=== PATIENT | female | born 2000 | race African-American/Black ===

== ENCOUNTER 2018-01-16 03:07 | Inpatient (IN) | payer OTHER ==
[~2018-01-16] VITALS: Ht 162.6 cm; Wt 55.7 kg
[2018-01-16] MEDS ORDERED: [UNRECOGNIZED DRUG - REMARK] PO (03:47)
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
[2018-01-16 04:35] LABS: BASO % 0.2 %; BASO ABS # 0.01 K/uL (0-0.2); EOS % 0.2 %; EOS ABS # 0.01 K/uL (0-0.5); HEMATOCRIT 41.5 % (37-47); HEMOGLOBIN 14.4 g/dL (12.0-16.0); IG# 0.02 K/uL (0.00-0.02); LYMPH % 13.7 %; LYMPH ABS # 0.79 K/uL (1.2-3.4); MEAN CELL VOLUME 90.2 fL (80-100); MEAN CORPUSCULAR HEMOGLOBIN 31.3 pg (25-34); MEAN CORPUSCULAR HGB CONC 34.7 g/dl (32-36); MEAN PLATELET VOLUME 9.2 fL (7.4-10.4); MONO ABS # 0.23 K/uL (0.11-0.59); NEUT % 81.6 %; NEUT ABS # 4.72 K/uL (1.4-6.5); PLATELET COUNT 225 K/uL (130-400); RED CELL DISTRIBUTION WIDTH CV 13.3 % (11.5-14.5); RED CELL DISTRIBUTION WIDTH SD 43.5 fL (36.4-46.3); WHITE BLOOD COUNT 5.78 K/uL (4.8-10.8)
[2018-01-16 04:58] LABS: CALCIUM 8.6 mg/dl (8.5-10.1); CREATININE 0.76 mg/dl (0.60-1.20); POTASSIUM 3.6 mmol/L (3.5-5.1)
[2018-01-16 05:08] LABS: TOTAL PROTEIN 7.4 gm/dl (6.4-8.2)
[2018-01-16] MEDS ORDERED: LIDOCAINE HCL 1% 20 ML VIAL ONE (05:30)
--- NOTE | 2018-01-16 06:04 | EMERGENCY ROOM VISIT NOTE ---
ED Visit Note Location: left forearm Total length: 4cm Complexity: simple Verbal consent was obtained after the risks and benefits were explained, including but not limited to bleeding, scarring, infection, pain, and bone/joint /nerve damage. At this time, the risks of the procedure are less than the risks of NOT performing the procedure. A time out was taken and the correct patient and site identified. The skin was prepped with betadine. The target area was anesthetized with 4 ml of 1% lidocaine without epinephrine. Copious irrigation was performed using NSS. The skin was re-prepped with betadine and a sterile field set. The wound was explored for foreign bodies and none found. Examination revealed no injury to deep structures such as tendons, bone, or significant blood vessels. Debridement was not performed. The wound edges were approximated using 6, 4-0 simple interrupted nylon sutures. Hemostasis and excellent approximation was achieved. Antibacterial ointment and a sterile dressing applied. Detailed wound care instructions and signs and symptoms of infection reviewed with the pt. No complications and the patient tolerated the procedure well. Current/Historical Medications Scheduled PRN [Unknown Sleep Med], 1 TAB PO HS PRN for Sleep Allergies Coded Allergies: No Known Allergies (Unverified , 01/16/18) Vital Signs Date Time Temp Pulse Resp B/P (MAP) Pulse Ox O2 Delivery O2 Flow Rate FiO2 01/16/18 03:16 37.2 97 18 101/66 96 Room Air Laboratory Results 01/16/18 04:24 Red Blood Count 4.60, Mean Corpuscular Volume 90.2, Mean Corpuscular Hemoglobin 31.3, Mean Corpuscular Hemoglobin Concent 34.7, Mean Platelet Volume 9.2, Neutrophils (%) (Auto) 81.6, Lymphocytes (%) (Auto) 13.7, Monocytes (%) (Auto) 4.0, Eosinophils (%) (Auto) 0.2, Basophils (%) (Auto) 0.2, Neutrophils # (Auto) 4.72, Lymphocytes # (Auto) 0.79, Monocytes # (Auto) 0.23, Eosinophils # (Auto) 0.01, Basophils # (Auto) 0.01 01/16/18 04:24 Test 01/16/18 00:00 01/16/18 04:24 Urine Color YELLOW Urine Appearance CLEAR (CLEAR) Urine pH 5.0 (4.5-7.5) Urine Specific [place] 1.024 (1.000-1.030) Urine Protein NEG (NEG) Urine Glucose (UA) NEG (NEG) Urine Ketones NEG (NEG) Urine Occult Blood 2+ (NEG) Urine Nitrite NEG (NEG) Urine Bilirubin NEG (NEG) Urine Urobilinogen NEG (NEG) Urine Leukocyte Esterase MODERATE (NEG) Urine WBC (Auto) 10-30 /hpf (0-5) Urine RBC (Auto) 0-4 /hpf (0-4) Urine Hyaline Casts (Auto) 1-5 /lpf (0-5) Urine Epithelial Cells (Auto) >30 /lpf (0-5) Urine Bacteria (Auto) NEG (NEG) Urine Mucus PRESENT (NONE PRSENT) Urine Opiates Screen NEG (NEG) Urine Methadone, Qualitative NEG (NEG) Urine Barbiturates NEG (NEG) Urine Phencyclidine (PCP) Level NEG (NEG) Ur Amphetamine/Methamphetamine NEG (NEG) MDMA (Ecstasy) Screen NEG (NEG) Urine Benzodiazepines Screen NEG (NEG) Urine Cocaine Metabolite NEG (NEG) Urine Marijuana (THC) NEG (NEG) White Blood Count 5.78 K/uL (4.8-10.8) Red Blood Count 4.60 M/uL (4.2-5.4) Hemoglobin 14.4 g/dL (12.0-16.0) Hematocrit 41.5 % (37-47) Mean Corpuscular Volume 90.2 fL (80-100) Mean Corpuscular Hemoglobin 31.3 pg (25-34) Mean Corpuscular Hemoglobin Concent 34.7 g/dl (32-36) Platelet Count 225 K/uL (130-400) Mean Platelet Volume 9.2 fL (7.4-10.4) Neutrophils (%) (Auto) 81.6 % Lymphocytes (%) (Auto) 13.7 % Monocytes (%) (Auto) 4.0 % Eosinophils (%) (Auto) 0.2 % Basophils (%) (Auto) 0.2 % Neutrophils # (Auto) 4.72 K/uL (1.4-6.5) Lymphocytes # (Auto) 0.79 K/uL (1.2-3.4) Monocytes # (Auto) 0.23 K/uL (0.11-0.59) Eosinophils # (Auto) 0.01 K/uL (0-0.5) Basophils # (Auto) 0.01 K/uL (0-0.2) RDW Standard Deviation 43.5 fL (36.4-46.3) RDW Coefficient of Variation 13.3 % (11.5-14.5) Immature Granulocyte % (Auto) 0.3 % Immature Granulocyte # (Auto) 0.02 K/uL (0.00-0.02) Anion Gap 9.0 mmol/L (3-11) Est Creatinine Clear Calc Drug Dose 102.9 ml/min Estimated GFR () 131.8 Estimated GFR (Non- 113.7 BUN/Creatinine Ratio 8.6 (10-20) Calcium Level 8.6 mg/dl (8.5-10.1) Total Bilirubin 1.0 mg/dl (0.2-1) Aspartate Amino Transf (AST/SGOT) 10 U/L (15-37) Alanine Aminotransferase (ALT/SGPT) 16 U/L (12-78) Alkaline Phosphatase 52 U/L (45-117) Total Protein 7.4 gm/dl (6.4-8.2) Albumin 4.0 gm/dl (3.4-5.0) Globulin 3.4 gm/dl (2.5-4.0) Albumin/Globulin Ratio 1.2 (0.9-2) Thyroid Stimulating Hormone (TSH) 0.360 uIu/ml (0.300-4.500) Salicylates Level < 1.7 mg/dl (2.8-20) Acetaminophen Level < 2 ug/ml (10-30) Ethyl Alcohol mg/dL 142.0 mg/dl (0-3) Departure Information Referrals No Doctor, Assigned Patient Instructions My [facility]
[2018-01-16] MEDS ORDERED: hydrOXYzine HCL 25 MG TAB PO PRN (10:00)
[2018-01-16] MEDS ORDERED: MAGNESIUM HYDROXIDE SUSP 30 ML UDC PO PRN (10:00)
[2018-01-16] MEDS ORDERED: SODIUM CHLORIDE 0.65% NA SOLN 45 ML (OCEAN) PRN (10:00)
[2018-01-16] MEDS ORDERED: BISMUTH SUBSALICYLATE PER ML OMNICELL CHARGE PO PRN (10:00)
[2018-01-16] MEDS ORDERED: ALUMINUM/MAGNESIUM SUSP 30 ML UDC PO PRN (10:00)
[2018-01-16] MEDS ORDERED: ACETAMINOPHEN 325 MG TAB PO PRN (10:00)
[2018-01-16 10:43] VITALS: O2SAT 100
[2018-01-16 11:19] VITALS: BP 118/70; PULSE 78; TEMP 37.2; Ht 162.6 cm; Wt 55.7 kg
--- NOTE | 2018-01-16 13:20 | EMERGENCY ROOM VISIT NOTE ---
ED Visit Note This patient was signed out to me by Dr. Salgado at shift change. She came in last evening and broke up with her boyfriend and had taken pills and cut herself to the point where we needed to suture her. Dr. Salgado felt strongly that she needed to stay. She sobered up and was evaluated by our mental health team they agree that she needs to stay. They also feel that she needs to have a 302 petition filled out as they do not feel that she will likely stay and has been trying to leave while she is here. This is done for the safety of the patient as there was a suicidal gesture/attempt. I did fill out the 302 petition and she was admitted to [facility].
--- NOTE | 2018-01-16 15:31 | Psychiatric History & Physical ---
History Date of Service Jan 16, 2018. Identifying Data Rich "Lexus" Luiza is a 17-year-old female admitted on Jan 16, 2018 at 10:59 who currently lives in [place] with 3 roommates. Rich Jarrett was admitted on a 302 involuntary commitment. Patient is admitted from home. The patient was brought to the ED by her roommates. Information provided by the patient is considered to be reliable. Chief Complaint "I cut myself accidentally, the doctor thinks it was in a suicide, but it was an accident". History of Present Illness Rich Jarrett who prefers to be called "Lexus" is a 17-year-old female admitted to [address] [place] [address] after being brought to the ED by her roommates for suicidal gesture and self-injury. Pt states she had recently broken up with her boyfriend who is studying abroad in [place]. Pt received a text message from him evening in which he was reportedly "saying everything was all my fault". Patient states that after she received this text message she began drinking. She states she is unsure of the amount or type of alcohol she drank. She does recall drinking at least one 4 Lee. Pt presented to the ED with a BAL of 142.0. She states that she began cutting her left forearm with an "eyebrow razor" and "accidentally cut too deep." Pt was found by her roommates who brought her to the ED for an evaluation. Pt states she has a history of SIB, primarily scratching with her nails and biting her hand. Pt reports the most recent episode of SIB was her senior year of high school. Pt denies any suicide attempts and is denying that her cutting last evening was in the context of suicidal thoughts. Reports from ED providers and other staff state the patient had reported her behavior as a suicide attempt and had a plan to overdose on pills as well. Pt denies current depression and states, "I feel normal, it was an accident." Pt appears to lack insight at this time as to the severity of the cuts on her arm, one of which requiring sutures in the ED. Pt states she has had self-harm urges for the past 4-5 years. She reports stress on her by the [employer] school system and constant studying. Pt states her parent's expectations of her have added stress as well. Pt is currently a freshman at [employer] and reports coming to [place] as a way to escape her parent's expectations. Pt denies symptoms of depression aside from difficulty falling asleep for which she uses Ambien regularly. Pt reports feeling anxious at times, stating "I think too much, I'm always trying to make sure everyone is happy." Pt denies difficulty relaxing, trouble with concentration, worrying, or previous history of panic attacks. Pt denies feeling that she has a mood or anxiety disorder. Pt reports receiving "a medication" for mood which she took for less than 2 weeks. Pt's was influenced by her grandmother, who is a doctor, that the medicine would not be effective and she discontinued it. Pt is unwilling to start medications at this time for a potential anxiety disorder. She denies SI/ HI, A/V hallucinations, paranoia, kulwant, OCD, PTSD, eating disorder, or other psychiatric concerns. Past Psychiatric History Current OP Treatment: no current treatment Prior OP Treatment: no prior treatment Prior Psych Hospitalizations: none Access to a Gun: No Suicide Attempts: No Past Medication Trials Reports having tried a "medication" previously for mood, unsure name or class of medication. Past Medical/Surgical History History of Concussion/Seizure: No Allergies Allergies: Coded Allergies: No Known Allergies (Unverified , 01/16/18) Home Medications Scheduled PRN [Unknown Sleep Med], 1 TAB PO HS PRN for Sleep Family History History of Suicide: No History of Substance Abuse: No Psychiatric History: No Alcohol Use Alcohol Use In Past 12 Months: Yes (pt states she drank last pm "for the first time this ") AUDIT Total Score: 2 Smoking Use Smoking Status: Never Smoker Substance History Pt denies substance abuse or previous experimentation with illicit drugs. Personal History Lives in: [place] with roommates; Parents and grandmother remain in [place] Childhood: Pt reports stress in regard to the [employer] school system and pressures put on her by her parents as a child. Pt is an only child. Grew up in a home with both parents and her grandmother. Education: started college (Freshman, undecided major) Work History: Full-time student Relationship History: never Children: none Spiritual Affiliation: none Legal History: none Psychological Trauma History: Denies Hx Traumatic Event Review of Systems Psych: denies symptoms other than stated above Constitutional: denied Cardiovascular: denied GI: denied Neurologic: denied Integumentary: reports long cuts to left forearm which have broken the skin, one dep cut requiring sutures Remainder of 10 body systems also reviewed and denied other than noted above. Examination Physical Examination A physical exam was performed in the ER prior to admission to the unit by Dr. Tara Salgado M.D.. I accept that physical as correct/medical clearance for the inpatient physical exam. Vital Signs Vital Signs Past 12 Hours Date Time Temp Pulse Resp B/P (MAP) Pulse Ox O2 Delivery O2 Flow Rate FiO2 01/16/18 11:19 37.2 78 20 118/70 01/16/18 10:43 71 20 114/73 100 01/16/18 07:21 103 18 115/73 99 Room Air 01/16/18 06:36 87 20 106/63 98 Room Air 01/16/18 03:16 37.2 97 18 101/66 96 Room Air Laboratory Results Last 24 Hours Test 01/16/18 00:00 01/16/18 04:24 Urine Color YELLOW Urine Appearance CLEAR Urine pH 5.0 Urine Specific Rheems 1.024 Urine Protein NEG Urine Glucose (UA) NEG Urine Ketones NEG Urine Occult Blood 2+ Urine Nitrite NEG Urine Bilirubin NEG Urine Urobilinogen NEG Urine Leukocyte Esterase MODERATE Urine WBC (Auto) 10-30 /hpf Urine RBC (Auto) 0-4 /hpf Urine Hyaline Casts (Auto) 1-5 /lpf Urine Epithelial Cells (Auto) >30 /lpf Urine Bacteria (Auto) NEG Urine Mucus PRESENT Urine Opiates Screen NEG Urine Methadone, Qualitative NEG Urine Barbiturates NEG Urine Phencyclidine (PCP) Level NEG Ur Amphetamine/Methamphetamine NEG MDMA (Ecstasy) Screen NEG Urine Benzodiazepines Screen NEG Urine Cocaine Metabolite NEG Urine Marijuana (THC) NEG White Blood Count 5.78 K/uL Red Blood Count 4.60 M/uL Hemoglobin 14.4 g/dL Hematocrit 41.5 % Mean Corpuscular Volume 90.2 fL Mean Corpuscular Hemoglobin 31.3 pg Mean Corpuscular Hemoglobin Concent 34.7 g/dl Platelet Count 225 K/uL Mean Platelet Volume 9.2 fL Neutrophils (%) (Auto) 81.6 % Lymphocytes (%) (Auto) 13.7 % Monocytes (%) (Auto) 4.0 % Eosinophils (%) (Auto) 0.2 % Basophils (%) (Auto) 0.2 % Neutrophils # (Auto) 4.72 K/uL Lymphocytes # (Auto) 0.79 K/uL Monocytes # (Auto) 0.23 K/uL Eosinophils # (Auto) 0.01 K/uL Basophils # (Auto) 0.01 K/uL RDW Standard Deviation 43.5 fL RDW Coefficient of Variation 13.3 % Immature Granulocyte % (Auto) 0.3 % Immature Granulocyte # (Auto) 0.02 K/uL Sodium Level 140 mmol/L Potassium Level 3.6 mmol/L Chloride Level 105 mmol/L Carbon Dioxide Level 26 mmol/L Anion Gap 9.0 mmol/L Blood Urea Nitrogen 7 mg/dl Creatinine 0.76 mg/dl Est Creatinine Clear Calc Drug Dose 102.9 ml/min Estimated GFR () 131.8 Estimated GFR (Non- 113.7 BUN/Creatinine Ratio 8.6 Random Glucose 104 mg/dl Calcium Level 8.6 mg/dl Total Bilirubin 1.0 mg/dl Aspartate Amino Transf (AST/SGOT) 10 U/L Alanine Aminotransferase (ALT/SGPT) 16 U/L Alkaline Phosphatase 52 U/L Total Protein 7.4 gm/dl Albumin 4.0 gm/dl Globulin 3.4 gm/dl Albumin/Globulin Ratio 1.2 Thyroid Stimulating Hormone (TSH) 0.360 uIu/ml Salicylates Level < 1.7 mg/dl Acetaminophen Level < 2 ug/ml Ethyl Alcohol mg/dL 142.0 mg/dl Mental Examination During interview pt is: alert and oriented, cooperative Appearance: appropriately dressed, appropriately groomed Eye contact is: good Motor behavior is: steady gait & station, no abnormal motor movements Speech: normal in rate, rhythm & volume Affect: anxious Mood is: anxious Thought process: goal directed, concrete (language barrier affecting thought process and communication at times) Thought content: reality based without delusions Suicidal thought are: denied (none reported currently), Plan: present (cut wrists prior to admission; voiced plan to overdose on medication) Homicidal thoughts are: denied Hallucinations: denies auditory, denies visual Cognition: attention grossly intact, language grossly intact Intelligence estimated to be: average Insight: limited Judgement: limited Physical examination of left forearm shows 3-4 superficial several inch long abrasions which have broken the skin. One laceration not viewed due to gauze dressing which had required sutures in the emergency room. All incisions appear to be clear of foreign bodies and healing appropriately at time of examination. Impression / Recommendations Impression 17-year-old female with previous history of SIB by cutting and biting, last episode 4-5 years ago. Pt reports cutting of her left forearm while intoxicated last evening after receiving an upsetting message from her ex- boyfriend. She denies suicidal ideation related to the cutting behavior and reports the deep cutting was an "accident"; however, there are reports to other staff stating the cutting was related to suicidal thoughts and the patient had planned to overdose on her medication. Due to these reports, will hold Ambien at least while hospitalized and encourage use of hydroxyzine for difficulty sleeping. Pt denies current SI/HI and is unwilling for medication to target a likely underlying mood or anxiety disorder. Pt requires inpatient hospitalization at this time due to the impulsivity of her actions and the risk for self-harm if discharged without proper safety planning and mitigation of risk factors. Inventory Assets Strengths: support of friends, good relationship with parents Needs: development of coping strategies, therapeutic intervention Risk Factors Assessment : No /single/: Yes Access to guns: No Health problems: No Mental Health Diagnoses: No Substance use disorders: No Previous attempt: No Previous psychiatric stay: No Hopelessness: No Smoker: No Protective Factors Assessment Taoist beliefs: No : No Responsible for young children: No Employed: No Supportive family: Yes Recommendations (1) Self-inflicted injury 01/16 - Unwilling for medications to target likely anxiety or mood disorder; continue with education about symptoms as well as healthy coping strategies for anxiety and mood that do not include self-harm. - Encourage hydroxyzine for difficulty sleeping, hold home medication of Ambien - q 15 min checks (behavioral with suicide precautions) for safety. - encourage participation in group, recreational and milieu therapies - encourage family session with parents or other identified supports if willing - Coordination with the university as needed Dr. Mercado has personally been involved in the review of the above case and development of recommendations. CPT Code Initial Hospital Care: 91285
[2018-01-17 07:01] VITALS: BP_SYST 100; BP_SYST 106; BP_DIAS 63; BP_DIAS 67; PULSE 48; PULSE 59; TEMP 36.8
--- NOTE | 2018-01-17 14:09 | Psychiatric Progress Notes ---
Progress Note Date of Service Jan 17, 2018. Interval History Rich Jarrett (Sue) is a 17-year-old female [employer] student from [place] who has a history of an unclear mood disorder, is not currently in outpatient treatment, and was admitted on Jan 16, 2018 at 10:59 involuntarily for suicidality and self injury. She lives in [place] with 3 roommates, who brought her to the emergency room intoxicated with a self-inflicted laceration to her forearm which required sutures. She has a history of self-injurious behavior, and is refusing medications for mood and anxiety, but is willing for a family meeting with her parents in [place]. Chief Complaint "Good, everything's going better". Subjective Patient was seen & assessed interval progress reviewed with Nursing. Staff report she attended groups and participated well. On my assessment, attempted to clarify, as per records patient endorsed suicidal thoughts to overdose on Ambien, but then told the PA yesterday that she was not suicidal and her self- inflicted laceration was an accident. She acts confused when asked about this discrepancy, and repeatedly states that she is not suicidal. States "everything 's going better, I'm happy, I think life is good." She says her "ex-boyfriend like bothered me," prior to admission, which led to her feeling "so mad and so sad," as she felt she did something wrong. She says she doesn't know why anyone was concerned about her hurting herself, "they think I tried suicide, but I didn 't want to." She says she never made suicidal statements, although in the record she stated she was suicidal with a plan to overdose, and had actually taken 40mg of Ambien to hurt herself, and cutting her forearm intentionally. Reviewed her statements in the record, and she initially states her self- inflicted laceration was an accident, but when asked to see the injuries, and noted 3 parallel cuts, she admits that she intentionally cut herself, but cannot or will not answer questions about the purpose of the cutting. She continues to refuse medications for mood and anxiety and refuses recommendations for outpatient treatment with a psychiatrist and therapist, stating she does not want to talk to strangers, and does not need help. She says that she will talk to her friends instead because "they are helping me." She is willing for a meeting with her friends, and signed releases for her roommate and best friend, who are reportedly coming in to visit this evening. Review of Systems Denies bleeding, swelling, or irritation of sutured laceration. Sleep Information Total Hours of Sleep: 8.00 Meal Information Percent of Breakfast Consumed: 0 Percent of Lunch Consumed: 0 Percent of Dinner Consumed: 100 Mental Status Exam During interview pt is: alert and oriented, cooperative (Partially, but not a reliable historian, giving conflicting reports, and misrepresenting presenting symptoms) Appearance: appropriately dressed, appropriately groomed Eye contact is: good Motor behavior is: steady gait & station, no abnormal motor movements Speech: normal in rate, rhythm & volume Affect: anxious Mood is: anxious Thought process: goal directed (Answers are often vague) Thought content: reality based without delusions Suicidal thought are: denied (But per records, admitted to a suicide attempt by cutting an Ambien overdose, and thoughts of overdosing to end her life), Intent: denied Homicidal thoughts are: denied Hallucinations: denies auditory, denies visual Cognition: attention grossly intact, language grossly intact Intelligence estimated to be: average Insight: limited Judgement: limited Physical examination of left forearm shows several superficial several inch long abrasions which have broken the skin. One laceration not viewed due to gauze dressing. Impression 17-year-old female with previous history of SIB by cutting and biting, last episode 4-5 years ago. Pt reports cutting of her left forearm while intoxicated the day of admission after receiving an upsetting message from her ex-boyfriend. She endorsed 2 weeks of suicidal thoughts in the emergency room with a plan to overdose on Ambien, and told the ER physician she had taken 4 Ambien in an attempt to harm herself. Since admission to the behavioral health unit, she has denied suicidal ideation related to the cutting behavior and reports the deep cutting was an "accident," which is inconsistent with her earlier reports. Ambien has been discontinued, and friends brought her home supply in so that it can be disposed of prior to discharge. She is unwilling for medication to target mood and anxiety symptoms, and is refusing recommendations for outpatient mental health follow-up. She requires inpatient hospitalization at this time due to the impulsivity of her actions, multiple attempts at self-harm, refusing medications and outpatient follow-up, the fact that none of her risk factors have been mitigated, and the ongoing risk for self -harm if discharged without proper safety planning and mitigation of risk factors. She is willing for a family meeting, and we will see if her friends who were involved in her admission can come in. Plan (1) Self-inflicted injury 01/16 - Unwilling for medications to target likely anxiety or mood disorder; continue with education about symptoms as well as healthy coping strategies for anxiety and mood that do not include self-harm. - Encourage hydroxyzine for difficulty sleeping, hold home medication of Ambien - q 15 min checks (behavioral with suicide precautions) for safety. - encourage participation in group, recreational and milieu therapies - encourage family session with parents or other identified supports if willing - Coordination with the university as needed 01/17 -Patient continues to minimize and give conflicting reports about her suicidality and self injury. Recommend family meeting with friends; and will ask staff to get collateral information from friends tonight when they visit. -Continue to educate the patient about her diagnoses and recommended treatment, including outpatient follow-up, which she is refusing. -Continue admission on a 302 involuntary commitment, and continue to gather information for the need for further commitment. -Wrote order for home supply of Ambien to be disposed of given overdose and suicide risk. Clarify prescribing physician and notify them of Rx discontinuation - per pharmacy, zolpidem 10mg med box has Arabic writing on it and no clear prescriber. PDMP has no results for her. Visit Code E&M Code: 12542 Inventory Assets Strengths: support of friends, good relationship with parents Needs: development of coping strategies, therapeutic intervention Risk Factors Assessment : No /single/: Yes Health problems: No Mental Health Diagnoses: No Substance use disorders: No Previous attempt: No Previous psychiatric stay: No Hopelessness: No Smoker: No Protective Factors Assessment Episcopal beliefs: No : No Responsible for young children: No Employed: No Supportive family: Yes Data Vital Signs Last 24 Hrs: Date Time Temp Pulse Resp B/P (MAP) Pulse Ox O2 Delivery O2 Flow Rate FiO2 01/17/18 07:01 36.8 48 16 106/67 59 100/63
[2018-01-17] MEDS ORDERED: DESTROY THIS MEDICATION ONE (14:15)
[2018-01-17] MEDS: BACITRACIN OINT 15 GM TUBE EXT PRN (14:57)
[2018-01-18] MEDS: hydrOXYzine HCL 25 MG TAB PO PRN (00:46)
[2018-01-18 07:02] VITALS: BP_SYST 101; BP_DIAS 67; BP_DIAS 69; PULSE 47; PULSE 50; TEMP 36.3
--- NOTE | 2018-01-18 08:16 | Psychiatric Progress Notes ---
Progress Note Date of Service Jan 18, 2018. Interval History Rich Jarrett (Sue) is a 17-year-old female [employer] student from [place] who has a history of an unclear mood disorder, is not currently in outpatient treatment, and was admitted on Jan 16, 2018 at 10:59 involuntarily for suicidality and self injury. She lives in [place] with 3 roommates, who brought her to the emergency room intoxicated with a self-inflicted laceration to her forearm which required sutures. She has a history of self-injurious behavior, and is refusing medications for mood and anxiety, but is willing for a family meeting with her parents in [place]. Chief Complaint "Bored". Subjective Patient was seen & assessed interval progress reviewed with Nursing. Staff report patient's wound was cleaned and inspected, no signs of infection, and bacitracin was applied. She spent most of the day in her room, refused breakfast, but ate half of lunch. She complained of feeling bored on the unit, and stayed up very late doing school work, stating that she usually stays up until 4 AM and sleeps until mid afternoon. When encouraged to go to bed earlier so that she could attend programming on the unit, she stated that she did not want to do that and just wanted to leave. Today, the patient states she is bored, and "I'm fine." She denies SI and continues to deny that she made suicidal statements, per record to both her roommates and ER staff, and says she "regularly takes 2 Ambien." Advised that it has been discontinued due to her abuse of it, mixing it with alcohol, and risk for harming herself. After much discussion, she says her friends told her she was making suicidal statements in the ER. She continues to refuse medications and outpatient follow up. She clarifies that she lives on campus with 3 roommates, and they brought her into the ER. She states she is bored here and wants to leave, doesn't need to go to groups because she doesn't want to talk to anyone and they do not work (but then admits that she has not actually tried), and doesn't need meds or aftercare, because she didn't mean to cut herself so deeply. She admits that alcohol played a role, and agrees she should not drink. She then asks if she is leaving on Friday. She states that her Ambien was prescribed by a doctor in [place], who she plans to see over the summer, but cannot remember his name. Sleep Information Total Hours of Sleep: 6.50 Meal Information Percent of Breakfast Consumed: 0 Percent of Lunch Consumed: 0 Percent of Dinner Consumed: 95 Mental Status Exam During interview pt is: alert and oriented, cooperative (but and unreliable historian, gives conflicting reports) Appearance: appropriately dressed, appropriately groomed Eye contact is: good Motor behavior is: steady gait & station, no abnormal motor movements Speech: normal in rate, rhythm & volume Affect: anxious (Incongruent incongruent with stated mood) Mood is: other ("I am fine") Thought process: goal directed (Answers are often vague) Thought content: cognitive distortions, other (Gives conflicting reports and frequently changes her story, minimizing symptoms) Suicidal thought are: denied (But per records, but on admission admitted to a suicide attempt by cutting an Ambien overdose, and thoughts of overdosing to end her life), Intent: denied Homicidal thoughts are: denied Hallucinations: denies auditory, denies visual Cognition: attention grossly intact, language grossly intact Intelligence estimated to be: average Insight: limited Judgement: limited Impression 17-year-old female with previous history of SIB by cutting and biting, last episode 4-5 years ago. She cut her left forearm requiring suturing the day of admission, stated she overdosed on 4 tablets of Ambien 10 mg in an attempt to hurt herself, and in the emergency room reported 2 weeks of suicidal thoughts with a plan to overdose on Ambien. Since admission to the behavioral health unit, she has denied suicidal ideation related to the cutting behavior and reports the deep cutting was an "accident," which is inconsistent with her earlier reports. She has also at times denied making suicidal statements, but at other times admits to it. She has been refusing to participate in treatment , will not go to groups and sleeps all day, and is refusing medications and outpatient mental health follow-up. Ambien has been discontinued, and friends brought her home supply in so that it can be disposed of prior to discharge. Had a ninfa discussion today about her high risk for continued self injury of her risk factors are not mitigated, and again reviewed the recommendations for treatment, including consideration of medication for mood and anxiety, outpatient follow-up with a therapist and psychiatrist, a family meeting with her roommates, and good outpatient safety plan. She requires inpatient hospitalization at this time due to the impulsivity of her actions, multiple attempts at self-harm, refusing medications and outpatient follow-up, the fact that none of her risk factors have been mitigated, and the ongoing risk for self -harm if discharged without proper safety planning and mitigation of risk factors. She is willing for a family meeting, and we will see if her friends who were involved in her admission can come in. Plan (1) Self-inflicted injury Per ER physician's recommendations for wound care: Keep area clean and dry, bacitracin as needed, suture removal in 10-12 days, use of Tylenol, ibuprofen, and ice as needed for discomfort. (2) Depression 01/16 - Unwilling for medications to target likely anxiety or mood disorder; continue with education about symptoms as well as healthy coping strategies for anxiety and mood that do not include self-harm. - Encourage hydroxyzine for difficulty sleeping, hold home medication of Ambien - q 15 min checks (behavioral with suicide precautions) for safety. - encourage participation in group, recreational and milieu therapies - encourage family session with parents or other identified supports if willing - Coordination with the university as needed 01/17 -Patient continues to minimize and give conflicting reports about her suicidality and self injury. Recommend family meeting with friends; and will ask staff to get collateral information from friends tonight when they visit. -Continue to educate the patient about her diagnoses and recommended treatment, including outpatient follow-up, which she is refusing. -Continue admission on a 302 involuntary commitment, and continue to gather information for the need for further commitment. -Wrote order for home supply of Ambien to be disposed of given overdose and suicide risk. Clarify prescribing physician and notify them of Rx discontinuation - per pharmacy, zolpidem 10mg med box has Yi writing on it and no clear prescriber. PDMP has no results for her. 01/18 -Patient continues to minimize her self injury and suicide attempt, although at times does admit to having suicidal thoughts on admission. She is demonstrating extremely poor insight, focused only on discharge, and is not participating in treatment, refusing groups, aftercare, and medication. -Staff to schedule a family meeting with her roommates who are involved in her admission, to talk about their concerns, with they have noticed in the way of symptoms, and our recommendations. -Patient strongly encouraged to attend and participate in groups while she is here, and advised that this is part of what we look for to indicate readiness for discharge. -Also reviewed recommendations for outpatient follow-up with a therapist at the minimum. -Staff to contact parents in [place] for collateral, and to inform them that the patient's Ambien has been discontinued due to overdose and see if they can identify the prescribing physician, so that they can also be informed for safety purposes and continuity of care. The patient states she does not recall the physician's name. -Patient informed that Ambien has been discontinued due to her abuse of it, as she admits to taking twice the prescribed dose on a regular basis, and told the ER doctor she had taken 4 tablets and mixed it with alcohol in an attempt to harm herself on the day of admission. Order written for pharmacy to dispose of it. She should not be prescribed medications that are dangerous in overdose. -Patient encouraged to work on a discharge safety plan. -Discussed patient's alcohol use, as she was intoxicated at the time of her suicide attempts/self-harm episode. Advised her that we would recommend she abstain completely from alcohol, as she is underage and faces potential legal problems, it increases her risk of engaging in self-harm/suicidal thoughts, and worsens mood and anxiety. She agreed to abstain for the foreseeable future. This should also be reviewed with her roommates. Visit Code E&M Code: 36462 Inventory Assets Strengths: support of friends, good relationship with parents Needs: development of coping strategies, therapeutic intervention, outpatient f/u, abstinence from alcohol, controlled substances discontinuation Risk Factors Assessment : No /single/: Yes Health problems: No Mental Health Diagnoses: No Substance use disorders: No Previous attempt: No Previous psychiatric stay: No Hopelessness: No Smoker: No Protective Factors Assessment Yarsani beliefs: No : No Responsible for young children: No Employed: No Supportive family: Yes Data Vital Signs Last 24 Hrs: Date Time Temp Pulse Resp B/P (MAP) Pulse Ox O2 Delivery O2 Flow Rate FiO2 01/18/18 07:02 36.3 47 16 101/67 50 101/69 Meds Administered Last 24 Hrs: Meds Administered (Past 24Hrs) Medications (Trade) Dose Ordered Sig/Nevaeh Route Start Time Stop Time Status Last Admin Dose Admin Hydroxyzine HCl (Vistaril Tab) 25 mg Q4H PRN PO 01/16/18 10:00 02/15/18 09:59 01/18/18 00:46 25 MG Bacitracin (Bacitracin Oint) 1 appln TID PRN EXT 01/17/18 08:45 02/16/18 08:44 01/17/18 14:57 1 APPLN Problem Qualifiers (1) Depression: Depression Type: unspecified Qualified Codes: F32.9 - Major depressive disorder, single episode, unspecified
[2018-01-19 06:52] VITALS: BP_SYST 96; BP_SYST 97; BP_DIAS 61; BP_DIAS 63; PULSE 44; PULSE 66; TEMP 36.2
--- NOTE | 2018-01-19 14:16 | Psychiatric Progress Notes ---
Progress Note Date of Service Jan 19, 2018. Interval History Rich Jarrett (Sue) is a 17-year-old female [employer] student from [place] who has a history of an unclear mood disorder, is not currently in outpatient treatment, and was admitted on Jan 16, 2018 at 10:59 involuntarily for suicidality and self injury. She lives in [place] with 3 roommates, who brought her to the emergency room intoxicated with a self-inflicted laceration to her forearm which required sutures. She has a history of self-injurious behavior, and is refusing medications for mood and anxiety, but is willing for a family meeting with her parents in [place]. Chief Complaint "I did not sleep to well last night, I'm just tired". Subjective Patient was seen & assessed interval progress reviewed with Treatment Team. Staff reports the patient is planning to have a meeting with her friends/ roommates this afternoon. Discussed need for contacting parents as CAMERON has been completed and there are some questions remaining about patient's Ambien prescription as she has plans to follow up with her provider this summer. Pt was seen today to assess progress since admission. Pt was observed while laying in bed. She states she did not sleep well last night due to noise distractions. She is requesting a nap currently. Pt states she has been attending groups and is aware of her meeting with friends scheduled for this afternoon. Pt initially states she only needs her friends to talk to, but is eventually agreeable to be seen at [facility] for therapy. Pt denies SI today. Pt does not voice other needs or concerns today. Review of Systems Psych: denies symptoms other than stated above Constitutional: reports fatigue due to not sleeping well last evening Cardiovascular: denied GI: denied Neurologic: denied Remainder of 10 body systems also reviewed and denied other than noted above. Sleep Information Total Hours of Sleep: 7.25 Meal Information Percent of Breakfast Consumed: 90 Percent of Lunch Consumed: 100 Percent of Dinner Consumed: 100 Mental Status Exam During interview pt is: alert and oriented, uncooperative (preoccupied with desire for a nap) Appearance: appropriately dressed, disheveled Eye contact is: good Motor behavior is: no abnormal motor movements (pt observed while laying in bed ) Speech: normal in rate, rhythm & volume Affect: anxious Mood is: other ("I'm tired") Thought process: goal directed, clear, coherent Thought content: preoccupation (with a nap), other (continues to minimize symptoms) Suicidal thought are: denied (But per records, but on admission admitted to a suicide attempt by cutting an Ambien overdose, and thoughts of overdosing to end her life), Intent: denied Homicidal thoughts are: denied Hallucinations: denies auditory, denies visual Cognition: attention grossly intact, language grossly intact Intelligence estimated to be: average Insight: limited Judgement: limited Impression Pt continues to minimize symptoms and need for treatment. Pt only recently agreeable to therapy at [facility] to continue to mitigate risk factors on an outpatient basis. Pt has been attending some groups, although is currently taking a nap during group activity time. Pt continues to be resistant to medications and has yet to process the severity and impulsivity of her suicide attempt. Pt is to have a meeting with her friends/roommates this afternoon. Her parents are also to be contacted to discuss Ambien prescription as the patient plans to return to her previous prescriber this summer. Pt requires ongoing inpatient mental health treatment due to the impulsivity of her suicide attempt, unwillingness for medications, and only mild efforts made here to mitigate risk factors and process the attempt. Plan (1) Self-inflicted injury Per ER physician's recommendations for wound care: Keep area clean and dry, bacitracin as needed, suture removal in 10-12 days, use of Tylenol, ibuprofen, and ice as needed for discomfort. (2) Depression 01/16 - Unwilling for medications to target likely anxiety or mood disorder; continue with education about symptoms as well as healthy coping strategies for anxiety and mood that do not include self-harm. - Encourage hydroxyzine for difficulty sleeping, hold home medication of Ambien - q 15 min checks (behavioral with suicide precautions) for safety. - encourage participation in group, recreational and milieu therapies - encourage family session with parents or other identified supports if willing - Coordination with the university as needed 01/17 -Patient continues to minimize and give conflicting reports about her suicidality and self injury. Recommend family meeting with friends; and will ask staff to get collateral information from friends debra when they visit. -Continue to educate the patient about her diagnoses and recommended treatment, including outpatient follow-up, which she is refusing. -Continue admission on a 302 involuntary commitment, and continue to gather information for the need for further commitment. -Wrote order for home supply of Ambien to be disposed of given overdose and suicide risk. Clarify prescribing physician and notify them of Rx discontinuation - per pharmacy, zolpidem 10mg med box has Thai writing on it and no clear prescriber. PDMP has no results for her. 01/18 -Patient continues to minimize her self injury and suicide attempt, although at times does admit to having suicidal thoughts on admission. She is demonstrating extremely poor insight, focused only on discharge, and is not participating in treatment, refusing groups, aftercare, and medication. -Staff to schedule a family meeting with her roommates who are involved in her admission, to talk about their concerns, with they have noticed in the way of symptoms, and our recommendations. -Patient strongly encouraged to attend and participate in groups while she is here, and advised that this is part of what we look for to indicate readiness for discharge. -Also reviewed recommendations for outpatient follow-up with a therapist at the minimum. -Staff to contact parents in [place] for collateral, and to inform them that the patient's Ambien has been discontinued due to overdose and see if they can identify the prescribing physician, so that they can also be informed for safety purposes and continuity of care. The patient states she does not recall the physician's name. -Patient informed that Ambien has been discontinued due to her abuse of it, as she admits to taking twice the prescribed dose on a regular basis, and told the ER doctor she had taken 4 tablets and mixed it with alcohol in an attempt to harm herself on the day of admission. Order written for pharmacy to dispose of it. She should not be prescribed medications that are dangerous in overdose. -Patient encouraged to work on a discharge safety plan. -Discussed patient's alcohol use, as she was intoxicated at the time of her suicide attempts/self-harm episode. Advised her that we would recommend she abstain completely from alcohol, as she is underage and faces potential legal problems, it increases her risk of engaging in self-harm/suicidal thoughts, and worsens mood and anxiety. She agreed to abstain for the foreseeable future. This should also be reviewed with her roommates. / - Pt remains uninvested in groups and recommended treatments; however, is agreeable to referral to [facility] for outpatient therapy - Family meeting with roommates/friends this afternoon - Pt remains willing to abstain from alcohol Visit Code E&M Code: 33720 Inventory Assets Strengths: support of friends, good relationship with parents Needs: development of coping strategies, therapeutic intervention, outpatient f/u, abstinence from alcohol, controlled substances discontinuation Risk Factors Assessment : No /single/: Yes Health problems: No Mental Health Diagnoses: No Substance use disorders: No Previous attempt: No Previous psychiatric stay: No Hopelessness: No Smoker: No Protective Factors Assessment Lutheran beliefs: No : No Responsible for young children: No Employed: No Supportive family: Yes Data Vital Signs Last 24 Hrs: Date Time Temp Pulse Resp B/P (MAP) Pulse Ox O2 Delivery O2 Flow Rate FiO2 01/19/18 06:52 36.2 44 16 96/61 66 97/63 Problem Qualifiers (1) Depression: Depression Type: unspecified Qualified Codes: F32.9 - Major depressive disorder, single episode, unspecified
[2018-01-19] MEDS: BACITRACIN OINT 15 GM TUBE EXT PRN (20:47)
[2018-01-19] MEDS: hydrOXYzine HCL 25 MG TAB PO PRN (23:46)
[2018-01-20 06:45] VITALS: BP_SYST 117; BP_SYST 93; BP_DIAS 64; BP_DIAS 81; PULSE 43; PULSE 65; TEMP 36.4
[2018-01-20] MEDS ORDERED: ZOLP10TA PO (11:43)
--- NOTE | 2018-01-20 12:17 | Discharge Instructions ---
Discharge Information Report Includes Report will include the: Discharge Instructions & Summary Admission Admission Date / Time: Jan 16, 2018 at 10:59 Reason for Admission: Cut Wrist;Sad Discharge Discharge Diagnosis / Problem: Depression not otherwise specified, self- inflicted laceration, intoxication Condition at Discharge: Fair Discharge Goals Goal(s): Improve function, Improve disease control, Learn about illness, Therapeutic intervention, Specific goals (Discontinue Ambien due to abuse of the medication, safety planning, refer for outpatient follow-up) Activity Recommendations Activity Limitations: per Instructions/Follow-up section . Instructions / Follow-Up Instructions / Follow-Up . SPECIAL CARE INSTRUCTIONS: 1. Follow through with your scheduled aftercare appointments. If unable to keep an appointment, please call to reschedule. Your self-inflicted laceration was sutured in the emergency room. Keep the wound clean and dry, and use bacitracin as needed. Follow up with your PCP for suture removal between 2017 and 01/28/2018. 2. Take your medication only as prescribed. Medication should not be changed or stopped without the approval of your doctor. In the event of worsening symptoms or concerns about side effects, contact your doctor immediately. 3. Utilize new healthy coping skills, anger management skills, and stress management skills learned during your hospitalization. Journal feelings and process them with a support person. Identify stressors or situations that may result in relapse, deterioration or inappropriate behaviors and develop a plan to deal with those issues. 4. If your coping skills are ineffective and you are in crisis, contact your outpatient providers for direction. If unable to reach your providers, please call the CAN HELP LINE AT or go to the closest Emergency Room. 5. You should not drink alcohol or take medications that are not prescribed to or controlled substances, such as Ambien, that are dangerous in overdose or can cause altered mental status. You reported overdosing on Ambien on admission and taking it while drinking alcohol, and it was discontinued. 6. You have been provided with the Mental Health Advance Directives Pamphlet for your review. AFTERCARE APPOINTMENTS: * Please call your insurance company prior to your scheduled appointment to confirm your aftercare providers are covered. Take your insurance information to your appointments. Discharge / Aftercare Planning Therapist: Name Of Therapist: Umair Reyes LCSW Date of Appointment: Jan 27, 2018 Time of Appointment: 1 p.m. Appointment Comments: [facility], [place] [address] . Follow-Up Care Plan for Follow-Up Care: See above. You were not willing to follow-up with a psychiatrist, although it was recommended. Current Hospital Diet Patient's current hospital diet: Regular Diet Discharge Diet Recommended Diet: Regular Diet Procedures Procedures Performed: Yes List Procedure(s) Performed: Laceration sutured in the emergency room Pending Studies Pending Studies at Discharge: No Medical Emergencies . Who to Call and When: Medical Emergencies: For questions or emergencies related to your hospital stay, please contact the Inpatient Behavioral Health Unit at [phone]. A marketing admin is on-call 12/05 for the Behavioral Health Unit for emergencies At any time you feel your situation is an emergency, you may also call 911 immediately. . Non-Emergent Contact Non-Emergency issues call your: Primary Care Provider, Therapist Past History Medical & Surgical History: (1) Medication overdose (2) Self-inflicted injury Advance Directives Existing Advance Directive: No Do You Have an Existing Mental: No Existing Living Will: No Existing Power of Tile Finisher: No Advance Directives Info Given: To Pt/S.O. Advance Directives Reason: Declines as Mental Health Visit. Discharge Summary Admission HPI Per the Admitting provider: Rich Jarrett who prefers to be called "Lexus" is a 17-year-old female admitted to [address] [place] [address] after being brought to the ED by her roommates for suicidal gesture and self-injury. Pt states she had recently broken up with her boyfriend who is studying abroad in [place]. Pt received a text message from him evening in which he was reportedly "saying everything was all my fault". Patient states that after she received this text message she began drinking. She states she is unsure of the amount or type of alcohol she drank. She does recall drinking at least one 4 Lee. Pt presented to the ED with a BAL of 142.0. She states that she began cutting her left forearm with an "eyebrow razor" and "accidentally cut too deep." Pt was found by her roommates who brought her to the ED for an evaluation. Pt states she has a history of SIB, primarily scratching with her nails and biting her hand. Pt reports the most recent episode of SIB was her senior year of high school. Pt denies any suicide attempts and is denying that her cutting last evening was in the context of suicidal thoughts. Reports from ED providers and other staff state the patient had reported her behavior as a suicide attempt and had a plan to overdose on pills as well. Pt denies current depression and states, "I feel normal, it was an accident." Pt appears to lack insight at this time as to the severity of the cuts on her arm, one of which requiring sutures in the ED. Pt states she has had self-harm urges for the past 4-5 years. She reports stress on her by the [employer] system and constant studying. Pt states her parent's expectations of her have added stress as well. Pt is currently a freshman at [employer] and reports coming to [place] as a way to escape her parent's expectations. Pt denies symptoms of depression aside from difficulty falling asleep for which she uses Ambien regularly. Pt reports feeling anxious at times, stating "I think too much, I'm always trying to make sure everyone is happy." Pt denies difficulty relaxing, trouble with concentration, worrying, or previous history of panic attacks. Pt denies feeling that she has a mood or anxiety disorder. Pt reports receiving "a medication" for mood which she took for less than 2 weeks. Pt's was influenced by her grandmother, who is a doctor, that the medicine would not be effective and she discontinued it. Pt is unwilling to start medications at this time for a potential anxiety disorder. She denies SI/ HI, A/V hallucinations, paranoia, kulwant, OCD, PTSD, eating disorder, or other psychiatric concerns. Admission Exam Per the Admitting provider: Please see admission H&P. Consultations None. Hospital Course (1) Self-inflicted injury Per ER physician's recommendations for wound care: Keep area clean and dry, bacitracin as needed, suture removal in 10-12 days, use of Tylenol, ibuprofen, and ice as needed for discomfort. /3 -patient instructed to keep the laceration clean, use bacitracin as needed, and follow up with her PCP for suture removal as directed. (2) Depression 01/16 - Unwilling for medications to target likely anxiety or mood disorder; continue with education about symptoms as well as healthy coping strategies for anxiety and mood that do not include self-harm. - Encourage hydroxyzine for difficulty sleeping, hold home medication of Ambien - q 15 min checks (behavioral with suicide precautions) for safety. - encourage participation in group, recreational and milieu therapies - encourage family session with parents or other identified supports if willing - Coordination with the university as needed 01/17 -Patient continues to minimize and give conflicting reports about her suicidality and self injury. Recommend family meeting with friends; and will ask staff to get collateral information from friends tonight when they visit. -Continue to educate the patient about her diagnoses and recommended treatment, including outpatient follow-up, which she is refusing. -Continue admission on a 302 involuntary commitment, and continue to gather information for the need for further commitment. -Wrote order for home supply of Ambien to be disposed of given overdose and suicide risk. Clarify prescribing physician and notify them of Rx discontinuation - per pharmacy, zolpidem 10mg med box has Guyanese writing on it and no clear prescriber. PDMP has no results for her. 01/18 -Patient continues to minimize her self injury and suicide attempt, although at times does admit to having suicidal thoughts on admission. She is demonstrating extremely poor insight, focused only on discharge, and is not participating in treatment, refusing groups, aftercare, and medication. -Staff to schedule a family meeting with her roommates who are involved in her admission, to talk about their concerns, with they have noticed in the way of symptoms, and our recommendations. -Patient strongly encouraged to attend and participate in groups while she is here, and advised that this is part of what we look for to indicate readiness for discharge. -Also reviewed recommendations for outpatient follow-up with a therapist at the minimum. -Staff to contact parents in [place] for collateral, and to inform them that the patient's Ambien has been discontinued due to overdose and see if they can identify the prescribing physician, so that they can also be informed for safety purposes and continuity of care. The patient states she does not recall the physician's name. -Patient informed that Ambien has been discontinued due to her abuse of it, as she admits to taking twice the prescribed dose on a regular basis, and told the ER doctor she had taken 4 tablets and mixed it with alcohol in an attempt to harm herself on the day of admission. Order written for pharmacy to dispose of it. She should not be prescribed medications that are dangerous in overdose. -Patient encouraged to work on a discharge safety plan. -Discussed patient's alcohol use, as she was intoxicated at the time of her suicide attempts/self-harm episode. Advised her that we would recommend she abstain completely from alcohol, as she is underage and faces potential legal problems, it increases her risk of engaging in self-harm/suicidal thoughts, and worsens mood and anxiety. She agreed to abstain for the foreseeable future. This should also be reviewed with her roommates. 4/2 - Pt remains uninvested in groups and recommended treatments; however, is agreeable to referral to [facility] for outpatient therapy - Family meeting with roommates/friends this afternoon - Pt remains willing to abstain from alcohol 01/20 -[facility] was unable to accept the patient for therapy due to a lack of appointments, so she was referred to Umair Reyes and has an appointment scheduled 01/27/2018. -wire preparation worker contacted the patient's father this morning, who disclosed that the patient's grandmother, Leann David, has been prescribing her Ambien. Staff unable to contact Dr. David today due to the time difference in [place], so will get a discharge release from the patient to send records and contact her tomorrow by phone to advise of concerns about patient's access to controlled substances. -Patient has been advised that Ambien is discontinued and has been safely disposed of by the pharmacy. She has been advised to recommendations not to drink alcohol. She is unwilling to follow-up with a psychiatrist. -Patient continues to deny suicidal thoughts and is focused on discharge, and as she is unlikely to gain additional benefit from inpatient treatment at this time and is no longer at acute risk of harm to herself, she can be discharged and managed as an outpatient at this time. Risk Factors Assessment : No /single/: Yes Higher / Fall in social status: No Access to guns: No Health problems: No Mental Health Diagnoses: No Substance use disorders: No Previous attempt: No Family history of suicide: No Previous psychiatric stay: No Hopelessness: No Smoker: No Protective Factors Assessment Pentecostalism beliefs: No : No Responsible for young children: No Employed: No Supportive family: Yes Absence of risk factors above: Yes (Risk factors mitigated by admission to the inpatient unit, discontinuing Ambien as she was abusing it and reported suicidal thoughts with a plan to overdose on it, educating her about her diagnosis and the recommended treatment, referring her for outpatient therapy, educating her about the risks of alcohol use and recommendations for abstinence , involving her friends and family in treatment, involving her in groups and therapy, working on healthy coping skills and a discharge safety plan. She has consistently denied thoughts of harming herself and has not engaged in self injury since admission, is willing to follow up with an outpatient therapist, and to abstain from alcohol use. She is very focused on discharge, does not want to stay in the hospital longer, and that she is no longer at acute risk of harm to herself, can be managed as an outpatient at this time. She does not have significant risk factors for harm to others.) Day of Discharge Assessment Hospital course: On admission, the patient stated that she cut herself accidentally, and was not suicidal, despite having told the emergency room physician that she was suicidal with thoughts to overdose on Ambien, and had cut her left forearm with an eyebrow razor deep enough to require sutures in the emergency room. She also endorsed a history of self injury by scratching and biting her hand. Ambien was discontinued, as she reported taking 4 tablets prior to admission along with alcohol, and later in her hospital stay admitted that she regularly takes double the prescribed dose of Ambien. She was not forthcoming with information about who prescribes the medication, stating she could not recall the name of her family physician in [place], but her father later clarified that it was her grandmother, Stefania Frankie. She denied symptoms of depression other than sleep disturbance, and reported anxiety primarily around wanting to make others happy. She said she was not interested in psychotropic medications, and did not feel she needed any form of mental health treatment. She initially refused to attend any groups, spending most of her day sleeping, and then would stay up very late at night. She demonstrated very poor insight into the concerns about her presenting symptoms, claiming that it was all a misunderstanding, but when confronted with her friends statements as well as statements she made in the emergency room, she admitted that she had expressed suicidal thoughts while intoxicated, and had cut her arms significantly. She had numerous cuts on her forearm, only 1 of which was deep enough to require sutures. She initially refused any sort of outpatient care, and stated that her friends would provide all the support she needed. She had a family meeting with HER-2 roommates on 01/19/2018. Roommate stated that she had been upset about a communication with her ex-boyfriend, and intentionally cut herself. They noted that she becomes upset quickly, and that they were scared when she was engaging in self-injurious behaviors. She met with a counselor that evening and disclosed more of the details that led to her self injury and admission. She said her ex-boyfriend was cheating on her with a girl who was living with him in [place], and did not think that this should be a problem. At times she stated that she wanted nothing more to do with him, but at other times talked about getting back together and said he was planning to come and visit her at the end of January. She also talked about her parents, stating she had told her father about being in the hospital, but had not talked to her mother, and believed that her father was keeping that information from her mother. She did not want her mother to know what was going on as she was afraid that she would insist on coming to the [facility] and make her go home. Although she initially refused to go to groups, she eventually did start to attend with superficial participation, tending to gloss over material. Staff observed that she was eating and sleeping well, and performing her own ADLs. She received a couple doses of hydroxyzine 25 mg for anxiety, but no other medications. wire preparation worker contacted her father on the day of discharge, and he stated that he does not believe she has "emotional or mental problems," but is just anxious because of the pressure she puts on herself and her academics. He further clarified that the patient's grandmother prescribes her Ambien, and that he did not have concerns about her abusing it. The patient's grandmother was not able to be contacted due to the time difference, but the patient did sign a discharge release for her so that records could be forwarded and concerns relayed regarding her Ambien. Date of discharge assessment: The patient states that she is doing "much better," stating that she feels hospitalization has actually been more helpful than she expected, and "I learned a lot here." He referenced her discussion with the counselor last evening, and felt that it was helpful to talk through her relationship difficulties. She states that she wants nothing more to do with her ex- boyfriend, and notes it was her "first love," so it has been very difficult for her to deal with it not working out. She feels she has good support from her roommates and family, it is very anxious to return to school as soon as possible. He denies any thoughts of harming herself or anyone else, urges to self injure, and denies any safety concerns with discharge. She remains agreeable to abstain from alcohol use, and is able to review her safety plan. Other them worried about missing school due to being in the hospital, she continues to deny other anxiety symptoms. She is future oriented, and willing to allow us to coordinate care with her grandmother, stating that she would like to try to call her again as she knows her grandmother is worried about her being in the hospital, and may still be awake. Petite but healthy-appearing appearing stated age. Casually dressed and adequately groomed. Calm and cooperative. Seated in NAD, with fair eye contact and no abnormal movements. Speech is normal rate, volume, and tone. Mood is "good," and affect is stable and congruent. Thoughts are linear, logical and goal directed. The patient denied suicidal and homicidal ideation and was able to review her safety plan. No paranoia, delusions, or hallucinations, and did not appear to be responding to internal stimuli. Cognition was grossly intact. Alert and oriented to person, place and time. Intelligence is consistent with level of education. Insight and and judgment are fair. Laboratory Test 01/16/18 00:00 01/16/18 04:24 Urine Color YELLOW Urine Appearance CLEAR Urine pH 5.0 Urine Specific Henderson 1.024 Urine Protein NEG Urine Glucose (UA) NEG Urine Ketones NEG Urine Occult Blood 2+ Urine Nitrite NEG Urine Bilirubin NEG Urine Urobilinogen NEG Urine Leukocyte Esterase MODERATE Urine WBC (Auto) 10-30 Urine RBC (Auto) 0-4 Urine Hyaline Casts (Auto) 1-5 Urine Epithelial Cells (Auto) >30 Urine Bacteria (Auto) NEG Urine Mucus PRESENT Urine Synthetic Stimulants Pending Urine Opiates Screen NEG Urine Methadone, Qualitative NEG Urine Barbiturates NEG Urine Phencyclidine (PCP) Level NEG Ur Amphetamine/Methamphetamine NEG MDMA (Ecstasy) Screen NEG Urine Benzodiazepines Screen NEG Urine Cocaine Metabolite NEG Cannabinoids Comment Pending Urine Synthetic Cannabinoids Pending Ur Synthetic Cannabinoids Confirm Pending Urine Marijuana (THC) NEG White Blood Count 5.78 Red Blood Count 4.60 Hemoglobin 14.4 Hematocrit 41.5 Mean Corpuscular Volume 90.2 Mean Corpuscular Hemoglobin 31.3 Mean Corpuscular Hemoglobin Concent 34.7 Platelet Count 225 Mean Platelet Volume 9.2 Neutrophils (%) (Auto) 81.6 Lymphocytes (%) (Auto) 13.7 Monocytes (%) (Auto) 4.0 Eosinophils (%) (Auto) 0.2 Basophils (%) (Auto) 0.2 Neutrophils # (Auto) 4.72 Lymphocytes # (Auto) 0.79 Monocytes # (Auto) 0.23 Eosinophils # (Auto) 0.01 Basophils # (Auto) 0.01 RDW Standard Deviation 43.5 RDW Coefficient of Variation 13.3 Immature Granulocyte % (Auto) 0.3 Immature Granulocyte # (Auto) 0.02 Sodium Level 140 Potassium Level 3.6 Chloride Level 105 Carbon Dioxide Level 26 Anion Gap 9.0 Blood Urea Nitrogen 7 Creatinine 0.76 Est Creatinine Clear Calc Drug Dose 102.9 Estimated GFR () 131.8 Estimated GFR (Non- 113.7 BUN/Creatinine Ratio 8.6 Random Glucose 104 Calcium Level 8.6 Total Bilirubin 1.0 Aspartate Amino Transferase (AST) 10 Alanine Aminotransferase (ALT) 16 Alkaline Phosphatase 52 Total Protein 7.4 Albumin 4.0 Globulin 3.4 Albumin/Globulin Ratio 1.2 Thyroid Stimulating Hormone (TSH) 0.360 Salicylates Level < 1.7 Acetaminophen Level < 2 Ethyl Alcohol mg/dL 142.0 Total Time Total Time Spent (min): Greater than 30 minutes Total Time Included: examination of the patient, discharge planning, medication reconciliation Tobacco Cessation at Discharge Smoking Status: Never Smoker FDA approved Prescription: non-smoker Problem Qualifiers (1) Depression: Depression Type: unspecified Qualified Codes: F32.9 - Major depressive disorder, single episode, unspecified
== END 2018-01-20 14:20 | disposition home or self-care (01) | DRG 881 ==
LOC: C.EDB 03:12 → C.MHU 10:59
PROVIDERS: ADMIT Psychiatry & Neurology Child & Adolescent Psychiatry; ATTEND Psychiatry & Neurology Child & Adolescent Psychiatry
PROC: 0HQEXZZ Repair Left Lower Arm Skin, External Approach (ICD-10-PCS; principal; 2018-01-16)
DX: F32.9 Major depressive disorder, single episode, unspecified (principal); R45.851 Suicidal ideations; T42.72XA Poisoning by unspecified antiepileptic and sedative-hypnotic drugs, intentional self-harm, initial encounter; S51.812A Laceration without foreign body of left forearm, initial encounter; X78.9XXA Intentional self-harm by unspecified sharp object, initial encounter; Y92.169 Unspecified place in school dormitory as the place of occurrence of the external cause